=== PATIENT | female | born 1990 | race African-American/Black ===

== ENCOUNTER 2020-03-30 14:25 | Emergency (ER) | payer OTHER ==
[~2020-03-30] VITALS: Ht 170.2 cm; Wt 143.3 kg
[~2020-03-30 14:25] MED LIST: AMOXICILLIN 50500 MG PO; BENTYL 10 MG CA10 MG PO; FLAGYL500 M1 PO; FLEXERIL PO; GENTAMICIN OPH3.5 GM OP; NAPROSYN500 MG PO; NORCO 5-325 TA1 EAC1 PO; ZANTAC 150MG T150 MG PO
[2020-03-30 15:20] LABS: URINE BILIRUBIN NEGATIVE (Negative); URINE BLOOD 2+ (Negative); URINE CLARITY CLEAR; URINE COLOR YELLOW; URINE GLUCOSE-RANDOM* NEGATIVE (Negative); URINE KETONES NEGATIVE (Negative); URINE LEUKOCYTES-REFLEX NEGATIVE (Negative); URINE NITRITE-REFLEX NEGATIVE (Negative); URINE PROTEIN (DIPSTICK) NEGATIVE (Negative); URINE SPECIFIC GRAVITY 1.025 (1.005-1.035); URINE UROBILINOGEN 0.2 E.U./dl (0.2-1.0)
[2020-03-30 15:36] LABS: SQUAMOUS 0-3 Few /LPF (0-3)
[2020-03-30 15:37] LABS: CASTS None Seen /LPF (None Seen); CRYSTALS None Seen /LPF (None Seen); URINE RBC 0-2 Rare /HPF (0-2); URINE WBC-REFLEX 0-5 Rare /HPF (0-5)
[2020-03-30 15:38] LABS: BACTERIA-REFLEX None Seen /HPF (None Seen)
[2020-03-30] MEDS ORDERED: NAPROSYN500 MG PO (15:54)
[2020-03-30 16:21] VITALS: BP 130/73
== END 2020-03-30 16:22 | disposition home or self-care (01) ==
LOC: ER 14:25
PROVIDERS: Emergency Medicine
DX: R10.32 Left lower quadrant pain (principal); R20.0 Anesthesia of skin; D64.9 Anemia, unspecified; K21.9 Gastro-esophageal reflux disease without esophagitis; Z88.8 Allergy status to other drugs, medicaments and biological substances; Z98.51 Tubal ligation status